=== PATIENT | female | born 1960 | race Caucasian/White ===

== ENCOUNTER → 2019-04-04 | Emergency (ER) | payer OTHER ==
[~2019-04-04] VITALS: Ht 154.9 cm; Wt 34.0 kg
[~2019-04-04] MED LIST: ADVIL COLD & S1 EACH; ADVIL100 MG; GAVISCON PO
== END | disposition home or self-care (01) ==
LOC: ER 09:34
DX: K52.9 Noninfective gastroenteritis and colitis, unspecified (principal); E86.0 Dehydration

== ENCOUNTER → 2019-11-01 07:23 | Outpatient (CLI) | payer OTHER | END | disposition home or self-care (01) | LOC: LAB 07:23 | DX: R22.2 Localized swelling, mass and lump, trunk (principal); Z01.811 Encounter for preprocedural respiratory examination ==

== ENCOUNTER 2019-11-19 06:32 | Day surgery (SDC) | payer OTHER ==
[~2019-11-19 06:32] MED LIST changes: +ALLEGRA ALLERG180 MG PO; +MOBIC7.5 MG PO; +MULTI VITAMIN1 EACH PO; +XANAX XR3 MG PO
[2019-11-19] MEDS ORDERED: ULTRACET PO (09:19)
== END 2019-11-19 10:25 | disposition home or self-care (01) ==
LOC: CIR.AMB 06:32
DX: D23.4 Other benign neoplasm of skin of scalp and neck (principal)